=== PATIENT | male | born 1965 | race American Indian/Alaskan Native ===

== ENCOUNTER 2018-08-09 05:26 | Emergency (ER) | payer OTHER ==
[2018-08-09 05:40] VITALS: BP 139/86
[2018-08-09] MEDS ORDERED: BOOSTRIX IM ONE (06:02)
[2018-08-09] MEDS ORDERED: TYLENOL #3 PO ONE (06:03)
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
== END 2018-08-09 08:00 | disposition left against medical advice (07) ==
LOC: ED 05:26
DX: S71.112A Laceration without foreign body, left thigh, initial encounter (principal); W26.0XXA Contact with knife, initial encounter; Y93.89 Activity, other specified; Y92.019 Unspecified place in single-family (private) house as the place of occurrence of the external cause; Y99.8 Other external cause status
CPT/HCPCS: 90471; 90715; 99283

== ENCOUNTER 2020-11-09 20:25 | Observation (INO) | payer SELFPAY ==
[2020-11-09] MEDS ORDERED: NALOXONE 2 MG/2 ML INJ ONE (20:31)
[2020-11-09] MEDS ORDERED: NALOXONE 2 MG/2 ML INJ IV ONE (20:40)
[2020-11-09] MEDS ORDERED: ETOMIDATE 20 MG/10 ML INJ IV ONE ×2 (20:54→22:48)
[2020-11-09] MEDS ORDERED: ROCURONIUM 50 MG/5 ML INJ IV ONE ×2 (20:55→22:48)
[2020-11-09] MEDS ORDERED: cefTRIAXone/NS 2 GM/100 ML 2 GM/100 ML BAG IV ONE (21:00)
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
[2020-11-09] MEDS ORDERED: VANCOMYCIN 1,500 MG in SODIUM CHLORIDE 0.9% 500 ML 500 ML IV ONE (21:30)
[2020-11-09 21:45] LABS: Basophils % (Auto) 0.5 % (0.0-1.8); Eosinophils % (Auto) 0.9 % (0.0-4.3); Hematocrit 37.5 % (35.5-45.6); Hemoglobin 12.1 gm/dl (11.8-15.2); Lymphocytes # (Auto) 1.9 K/mm3 (1.2-5.4); Lymphocytes % (Auto) 38.5 % (13.4-35.0); Mean Corpuscular HGB Conc 32 % (32-34); Mean Corpuscular Volume 84 fl (84-94); Monocytes # (Auto) 0.5 K/mm3 (0.0-0.8); Monocytes % (Auto) 10.1 % (0.0-7.3); Platelet Count 183 K/mm3 (140-440); Red Blood Count 4.44 M/mm3 (3.65-5.03); Red Cell Distribution Width 12.9 % (13.2-15.2)
--- NOTE | 2020-11-09 21:50 | XRay Report ---
CHEST 1 VIEW 11/09/2020 8:32 PM INDICATION / CLINICAL INFORMATION: Confirm ETT placement again. COMPARISON: Radiograph from the same date. FINDINGS: SUPPORT DEVICES: The endotracheal tube tip projects approximately 4 cm superior to the gordon. HEART / MEDIASTINUM: Stable. LUNGS / PLEURA: There is central vascular congestion and bilateral interstitial prominence. No pneumo thorax. ADDITIONAL FINDINGS: No significant additional findings. IMPRESSION: 1. Endotracheal tube in expected position. 2. Central vascular congestion and bilateral interstitial prominence is suggestive of mild pulmonary edema. Signer Name: Abraham Marks MD Signed: 11/09/2020 9:46 PM Workstation Name: [id number]
[2020-11-09 21:51] LABS: Alanine Aminotransferase 33 units/L (7-56); Albumin 4.2 g/dL (3.9-5); Blood Urea Nitrogen 19 mg/dL (9-20); Hemolysis Index 7
--- NOTE | 2020-11-09 21:55 | XRay Report ---
CHEST 1 VIEW 11/09/2020 8:34 PM INDICATION / CLINICAL INFORMATION: ET tube placement. COMPARISON: None available. FINDINGS: SUPPORT DEVICES: Endotracheal tube tip projects approximately 10.2 cm superior to the gordon above th e thoracic inlet. Esophagogastric tube sidehole projects near the esophagogastric junction. HEART / MEDIASTINUM: No significant abnormality. LUNGS / PLEURA: No significant pulmonary or pleural abnormality. No pneumothorax. ADDITIONAL FINDINGS: No significant additional findings. IMPRESSION: 1. The endotracheal tube tip projects superior to the thoracic inlet. Advancement of 7-8 cm is recomm ended for optimal positioning. 2. The esophagogastric tube sidehole projects near the esophagogastric junction, and advancement of 3 -4 cm is recommended for optimal positioning. Signer Name: Abraham Marks MD Signed: 11/09/2020 9:51 PM Workstation Name: [id number]
[2020-11-09 22:01] LABS: Bilirubin,Urine NEG (Negative); Blood,Urine NEG (Negative); Color,Urine Yellow (Yellow); Mucus,Urine FEW /HPF; Protein,Urine <15 mg/dL mg/dL (Negative); Urobilinogen,Urine < 2.0 mg/dL (<2.0)
[2020-11-09 22:03] LABS: BUN/Creatinine Ratio 38; Bilirubin,Direct < 0.2 mg/dL (0-0.2)
[2020-11-09 22:11] LABS: Benzodiazepines Screen,Urine Negative; Cannabinoid Screen,Urine Negative; Cocaine Screen,Urine Negative; Methadone Screen,Urine Negative; Opiate Screen,Urine Negative
[2020-11-09 22:24] LABS: Amphetamine Screen,Urine Positive
[2020-11-09] MEDS ORDERED: SODIUM CHLORIDE 0.9% 1000 ML 1,000 ML IV ONE ×2 (22:27)
[2020-11-09] MEDS ORDERED: SODIUM CHLORIDE 0.9% 1000 ML 2,000 ML IV ONE (22:30)
--- NOTE | 2020-11-10 00:18 | Cat Scan Report ---
CT head/brain wo con INDICATION / CLINICAL INFORMATION: Unresponsive. TECHNIQUE: Axial CT imaging of the brain was obtained without contrast. Coronal and sagittal reformatted imaging obtained and reviewed. All CT scans at this location are performed using CT dose reduction for ALAR A by means of automated exposure control. COMPARISON: None available. FINDINGS: No intracranial hemorrhage, mass, or midline shift is noted. No extra-axial fluid collection or sugge stion of acute territorial infarction. Ventricular system and basilar cisterns are unremarkable. Armas -white interface is maintained bilaterally. Visualized paranasal sinuses are well aerated and clear. Mastoid air cells are well aerated and clear . No calvarial fracture. No soft tissue abnormality. IMPRESSION: 1. Negative noncontrasted head CT scan. Signer Name: Harriet Baer MD Signed: 11/10/2020 12:13 AM Workstation Name: [id number]
--- NOTE | 2020-11-10 00:30 | XRay Report ---
CHEST 1 VIEW INDICATION / CLINICAL INFORMATION: Recheck ET tube after advancement. COMPARISON: 11/09/2020 at 2134 hours FINDINGS: SUPPORT DEVICES: Endotracheal tube is essentially unchanged in position. The tip is approximately 5.3 cm from the gordon and appears to be in grossly satisfactory position. HEART / MEDIASTINUM: No significant abnormality. LUNGS / PLEURA: Left lung is clear. There is volume loss within the right lower lobe suggesting devel oping right lower lobe atelectasis. No pneumothorax. ADDITIONAL FINDINGS: No significant additional findings. IMPRESSION: 1. ET tube appears to be in satisfactory position. 2. Developing right lower lobe atelectasis. Signer Name: Harriet Baer MD Signed: 11/10/2020 12:26 AM Workstation Name: [id number]
[2020-11-10] MEDS ORDERED: AMMONIA INHALANT IH ONE (00:56)
[2020-11-10] MEDS ORDERED: ONDANSETRON 4 MG/2 ML INJ IV PRN (01:31)
[2020-11-10] MEDS ORDERED: MAGNESIUM HYDROXIDE (MOM) ORAL LIQD UDC PO PRN (01:31)
--- NOTE | 2020-11-10 01:42 | History and Physical Report ---
History of Present Illness Date of examination: 11/10/20 Date of admission: 11/10/20 01:05 Chief complaint: Altered Mental Status History of present illness: 55-year-old -[place] male brought into the emergency room today by EMS having been found unresponsive in his car. Someone had called 911 because patient was seen in his car asleep and subsequently EMS was notified. Upon arrival of EMS patient was found to be completely unresponsive with pinpoint p upils. Was given 2 mg of IV Narcan without any significant improvement. Blood glucose on the field was about 103 and vital signs were also stable. He was subsequently intubated in the emergency room to protect his airway. During the course of his stay in the emergency room patient was said to have self extubated himself. He however remained altered. Work-up in the emergency room was unremarkable except for amphetamine in the UDS. During my evaluation patient still appeared altered and was unable to respond to questions appropriately. Patient is being admitted for altered mental status. Past History Past Medical History: No medical history Past Surgical History: No surgical history Social history: smoking (Current daily smoker) Family history: no significant family history Medications and Allergies Allergies Allergy/AdvReac Type Severity Reaction Status Date / Time No Known Allergies Allergy Unverified 08/09/18 05:39 Active Meds: Active Medications Enoxaparin Sodium (Enoxaparin 40 Mg/0.4 Ml Inj) 40 mg SUB-Q QDAY@2200 JOESPH; Protocol Propofol (Diprivan 10 Mg/Ml) 1,000 mg in 100 mls @ 2.313 mls/hr IV TITR JOESPH; Protocol Last Admin: 11/09/20 21:58 Dose: 5 mcg/kg/min, 2.313 mls/hr Documented by: Magnesium Hydroxide (Magnesium Hydroxide (Mom) Oral Liqd Udc) 30 ml PO Q4H PRN PRN Reason: Constipation Ondansetron HCl (Ondansetron 4 Mg/2 Ml Inj) 4 mg IV Q8H PRN PRN Reason: Nausea And Vomiting Sodium Chloride (Sodium Chloride 0.9% 10 Ml Flush Syringe) 10 ml IV BID JOESPH Sodium Chloride (Sodium Chloride 0.9% 10 Ml Flush Syringe) 10 ml IV PRN PRN PRN Reason: LINE FLUSH Review of Systems Constitutional: no fever, no chills Ears, nose, mouth and throat: no nasal congestion, no sore throat Cardiovascular: no chest pain, no palpitations Respiratory: no cough, no shortness of breath Gastrointestinal: no abdominal pain, no nausea, no vomiting, no diarrhea Genitourinary Male: no dysuria, no hematuria, no flank pain Musculoskeletal: no neck pain, no low back pain Integumentary: no rash, no pruritis Neurological: change in mentation, no syncope, no headaches Psychiatric: no anxiety, no suicidal ideation, no depression Endocrine: no polyphagia, no excessive thirst, no polydipsia, no polyuria, no nocturia Exam - Constitutional Vitals: Temp Pulse Resp BP Pulse Ox 96.4 F L 96 H 12 173/85 100 11/09/20 20:36 11/10/20 00:30 11/10/20 00:30 11/10/20 00:30 11/10/20 00:30 General appearance: Present: no acute distress, well-nourished - EENT Eyes: Present: PERRL, EOM intact ENT: hearing intact, clear oral mucosa, dentition normal - Neck Neck: Present: supple, normal ROM - Respiratory Respiratory effort: normal Respiratory: bilateral: CTA - Cardiovascular Rhythm: regular Heart Sounds: Present: S1 & S2 - Extremities Extremities: no ischemia, pulses intact, pulses symmetrical, No edema, normal temperature, Full ROM Peripheral Pulses: within normal limits - Abdominal General gastrointestinal: Present: soft, non-tender, non-distended, normal bowel sounds. Absent: mass - Integumentary Integumentary: Present: clear, warm, dry, normal turgor. Absent: rash - Musculoskeletal Musculoskeletal: strength equal bilaterally - Psychiatric Psychiatric: cooperative, other (Appeared confused) - Neurologic Neurologic: CNII-XII intact, no focal deficits, moves all extremities HEART Score - HEART Score Troponin: Troponin T < 0.010 ng/mL (0.00-0.029) 11/09/20 21:02 Results - Labs CBC & Chem 7: 11/09/20 21:02 11/09/20 21:02 Labs: Abnormal lab results 11/09/20 11/09/20 11/09/20 Range/Units 20:38 21:02 21:02 MCH 27 L (28-32) pg RDW 12.9 L (13.2-15.2) % Lymph % (Auto) 38.5 H (13.4-35.0) % [place] % (Auto) 10.1 H (0.0-7.3) % ABG pH (7.320-7.450) POC ABG pCO2 (32.0-48.0) mmHg POC ABG pO2 (83-108) mmHg ABG Oxyhemoglobin (94-98) ABG Glucose (65-95) mg/dL Sodium 136 L (137-145) mmol/L Creatinine 0.5 L (0.8-1.3) mg/dL Glucose 104 H (75-100) mg/dL POC Glucose 115 H (70-105) mg/dL Alkaline Phosphatase 144 H (35-129) units/L Ammonia (25-60) umol/L Arterial Blood Glucose (65-95) mg/dL Salicylates (2.8-20.0) mg/dL Acetaminophen (10.0-30.0) ug/mL 11/09/20 11/09/20 11/09/20 Range/Units 21:02 21:02 21:02 MCH (28-32) pg RDW (13.2-15.2) % Lymph % (Auto) (13.4-35.0) % [place] % (Auto) (0.0-7.3) % ABG pH (7.320-7.450) POC ABG pCO2 (32.0-48.0) mmHg POC ABG pO2 (83-108) mmHg ABG Oxyhemoglobin (94-98) ABG Glucose (65-95) mg/dL Sodium (137-145) mmol/L Creatinine (0.8-1.3) mg/dL Glucose (75-100) mg/dL POC Glucose (70-105) mg/dL Alkaline Phosphatase (35-129) units/L Ammonia 61.0 H (25-60) umol/L Arterial Blood Glucose (65-95) mg/dL Salicylates < 0.3 L (2.8-20.0) mg/dL Acetaminophen 5.0 L (10.0-30.0) ug/mL 11/09/20 Range/Units 22:53 MCH (28-32) pg RDW (13.2-15.2) % Lymph % (Auto) (13.4-35.0) % [place] % (Auto) (0.0-7.3) % ABG pH 7.191 L (7.320-7.450) POC ABG pCO2 63.3 H (32.0-48.0) mmHg POC ABG pO2 311.5 H (83-108) mmHg ABG Oxyhemoglobin 98.4 H (94-98) ABG Glucose 110 H (65-95) mg/dL Sodium (137-145) mmol/L Creatinine (0.8-1.3) mg/dL Glucose (75-100) mg/dL POC Glucose (70-105) mg/dL Alkaline Phosphatase (35-129) units/L Ammonia (25-60) umol/L Arterial Blood Glucose 110 H (65-95) mg/dL Salicylates (2.8-20.0) mg/dL Acetaminophen (10.0-30.0) ug/mL Assessment and Plan - Patient Problems (1) Altered mental state Current Visit: Yes Status: Acute Plan to address problem: Etiology unclear. Possibly secondary to drug overdose. UDS was positive for amphetamine. Will monitor mental status. (2) Respiratory failure Current Visit: Yes Status: Acute Plan to address problem: Patient was initially intubated was subsequently extubated himself. We will monitor oxygen saturation and keep saturation greater or equal to 92%. (3) DVT prophylaxis Current Visit: Yes Status: Acute Plan to address problem: Patient placed on subcutaneous Lovenox. (4) Full code status Current Visit: Yes Status: Acute Plan to address problem: Patient is full code.
--- NOTE | 2020-11-10 04:32 | Event Note ---
Date: 11/10/20 55-year-old -[place] who has just been admitted for altered mental status and unresponsiveness has become alert and oriented and quite responsive. He was initially intubated and subsequently self extubated himself. He now appears alert and oriented x3, answers all questions appropriately and wants to sign out AGAINST MEDICAL ADVICE. Patient was counseled and encouraged on close observation in the hospital but he declined.
[2020-11-10 04:37] VITALS: BP 143/70
[2020-11-10] MEDS ORDERED: ENOXAPARIN 40 MG/0.4 ML INJ SUB-Q SCH (22:00)
--- NOTE | 2020-11-19 10:36 | Electrocardiograph Report ---
[facility] Test Date: 2020-11-09 Test Time: 23:10:38 Pat Name: CLEO LOZANO Department: Room: A263 1 Gender: M [employer] Site [employer]er: SRIRAM : 1965 Requested By: ANTONINA ZURITA Order Number: [id number] Reading MD: Cindy Mayorga Measurements Intervals [place] Rate: 96 P: 71 IA: 176 QRS: 62 QRSD: 76 T: 52 QT: 326 QTc: 413 Interpretive Statements Sinus rhythm Probable left atrial enlargement Early repolarization ST changes No previous ECG available for comparison Electronically Signed On 11-19-2020 10:35:45 EDT by Cindy Mayorga
== END 2020-11-10 04:37 | disposition left against medical advice (07) ==
LOC: ED 20:25 → CC1 11-10 01:05
PROVIDERS: ADMIT Internal Medicine Geriatric Medicine; ATTEND Internal Medicine Geriatric Medicine
DX: J96.00 Acute respiratory failure, unspecified whether with hypoxia or hypercapnia (principal); R41.82 Altered mental status, unspecified; F17.200 Nicotine dependence, unspecified, uncomplicated; Z79.899 Other long term (current) drug therapy; Z98.890 Other specified postprocedural states
CPT/HCPCS: 31500; 36415; 36600; 70450; 71045; 80048; 80076; 80307; 81001; 82140; 82550; 82805; 82962; 83735; 84484; 85025; 87040; 87070; 87086; 87205; 93005; 94002; 96361; 96365; 96366; 96367; 96375; 99291; G0378; J0696; J2310; J2704; J3370; J7030; J7040; 80320; G0480